=== PATIENT | female | born 1960 | race Caucasian/White ===

== ENCOUNTER 2019-05-14 14:21 | Observation (INO) | payer OTHER, SELFPAY ==
[2019-05-14 14:23] VITALS: BP 149/93; PULSE 85; RESP 16; TEMP 36.7; O2SAT 98; BMI 34.2
--- NOTE | 2019-05-14 14:27 | NURSING ---
NO OLD EKGS
--- NOTE | 2019-05-14 14:42 | RAD_ITS ---
STUDY: X-RAY CHEST REASON FOR EXAM: Female, 58 years old. PT C/O CP, HEARTBURN AND NOT FEELING WELL. ONSET LAST NIGHT. WAS SENT OVER BY URGENT CARE. TECHNIQUE: PA and lateral views of the chest. COMPARISON: None. FINDINGS: The lungs are clear and expanded. There is no demonstrated pleural abnormality. Normal size heart. Normal mediastinum and raghu. Normal visualized pulmonary arteries. Mild atherosclerosis of the aortic arch. There is demineralization of the osseous structures. Normal visualized ribs, clavicles, and shoulders. There is no demonstrated abnormality of the visualized soft tissue structures of the upper abdomen. RAD/Chest PA and Lateral IMPRESSION: No acute cardiopulmonary process. Electronically Signed: Ar Washburn MD (Brooks) at 14:57 EST , Service support ,
--- NOTE | 2019-05-14 15:39 | EKG12_ITS ---
Test Reason : CP ADMIT Blood Pressure : / mmHG Vent. Rate : 056 BPM Atrial Rate : 056 BPM P-R Int : 146 ms QRS Dur : 082 ms QT Int : 438 ms P-R-T Axes : 044 056 056 degrees QTc Int : 422 ms Sinus bradycardia Otherwise normal ECG No previous ECGs available Confirmed by NEENA BOUCHER, BRODERICK ([id number]), publishing editor CARLINE WALLER ([id number]) on 05/17/2019 8:19:08 AM Referred By: DR NEVAREZ Confirmed By:BROEDRICK CHAUDHARY MD
[2019-05-14 15:58] LABS: Absolute Lymphocyte Count 3.08 X10^3/uL (0.83-4.51); Absolute Neutrophil Count 4.9 X10^3/uL (2.0-7.7); Basophil# 0.05 X10^3/uL; Basophil% 0.6 % (0-1); Eosinophil# 0.14 X10^3/uL; Eosinophils% 1.7 % (0-5); Hematocrit 38.1 % (37-47); Hemoglobin 12.3 g/dL (12.0-15.0); Lymphocyte # 3.08 X10^3/ul (4.0); Lymphocyte % 36.3 % (19-41); Mean Corp Hgb Conc 32.3 g/dL (32-36); Mean Corpuscular Hgb 29.9 pg (27.0-32.0); Mean Corpuscular Volume 92.5 fL (81-99); Mean Platelet Vol. 8.7 fl (6.2-12.0); Monocyte# 0.31 X10^3/uL; Monocyte% 3.7 % (0-10); NRBC Flagged by Analyzer 0 % (0-5); Neutrophil # 4.88 X10^3/uL (2.7-7.7); Neutrophil % 57.5 % (47-70); Platelet Count 355 K/mm3 (150-450); RBC Distribution Width CV 13.2 % (11.6-14.6); Red Blood Count 4.12 M/mm3 (4.2-5.4); White Blood Count 8.5 K/mm3 (4.4-11.0)
[2019-05-14] MEDS: Aspirin 81 MG TAB.CHEW 324 MG PO (16:02)
[2019-05-14 16:17] LABS: Anion Gap 3 (5-15); BUN 11 mg/dL (7-18); BUN/Creat Ratio 16.6 RATIO (10-20); Calcium,Total 8.9 mg/dL (8.5-10.1); Chloride 111 mmol/L (98-107); Creatinine, Serum 0.66 mg/dL (0.55-1.02); EST Glomerular Filtration Rate 98 mL/min (>60); Est Glom Filt Rate - Afr Amer 118 mL/min (>60); Glucose 91 mg/dL (74-106); Sodium Level 141 mmol/L (136-145)
--- NOTE | 2019-05-14 16:31 | ED.DCSUM_ITS ---
- ER Visit Summary Date of Service: 05/14/19 Chief Complaint: Chest pain History of Present Illness: The patient is a 58 F presenting with chest pain. Patient states this started yesterday and has been intermittent. At worst it is 8 out of 10, currently 5 out of 10. Chest pain radiates to her left arm. She has associated nausea and diaphoresis. She denies shortness of breath. She went to see her primary care physician and was advised to come to the ED for further evaluation. She is a smoker. She denies PE/DVT risk factors. Physical Examination: Vitals are stable. Patient is afebrile. Alert no acute distress. HEENT exam is unremarkable. Neck is supple. Lungs are clear and equal bilaterally. Heart is regular rate and rhythm. Abdomen is soft nontender nondistended. Extremities are unremarkable. Skin is warm and dry. No focal neurologic deficit. Remainder of exam is unremarkable. Emergency Department Course and Treatment: EKG is sinus rhythm rate of 76. Chest x-ray shows no acute process. CBC, chemistries unremarkable. Troponin is negative. Patient was given aspirin on arrival. She is pain-free on reevaluation. Discussed with the hospitalist for observation. Disposition: Observation Impression: Chest pain This note was generated with [employer] dictation software. It may contain incorrect words, spelling, and punctuation that were not noted in review of the chart prior to signing ED Disposition - Plan for ED Patient: Referrals: Margie Umaña DO [Primary Care Provider] -
--- NOTE | 2019-05-14 17:21 | HP.PCM_ITS ---
<Wade Vickers - Last Filed: 05/14/19 17:21> Problem List (1) Chest pain Status: Acute (2) Nicotine abuse Status: Chronic (3) Vertigo Status: Chronic History of Present Illness Date of Admission: 05/14/19 Chief Complaint: chest pain The patient is a 58 year old F with pmhx of vertigo and nicotine abuse who presents to the ER with c/o chest pain. This began last night at 1030 when she was laying in bed. She states it felt like heartburn and was 10/10 in severity. She had associated left arm numbness. She had profuse sweating. She went to [facility] and woke up with it still present. It has gradually improved in severity to a 1/10 currently. She has never had a stress test and denies any cardiac hx. She has smoked off and on since age 13 and currently smokes 1/2 ppd. Both parents had heart disease. She denies SOB currently. No nausea/vomiting/diarrhea, fevers/chills, or recent infections. 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 Denies: Edema, Heaviness, Light Headedness, Orthopnea, Palpitations, Syncope Respiratory: Reports: Shortness of Breath. Denies: Cough, Shortness of breath at rest, Sputum production Gastrointestinal: Denies: Abdominal Pain, Diarrhea, Nausea, Vomiting Genitourinary: Denies: Dysuria Musculoskeletal: Denies: Joint Pain, Joint Tenderness Skin: Denies: Lesions, Rash, Wounds Neurological: Denies: Numbness, Tingling, Focal weakness Psychiatric: Denies: Anxiety, Depression, Homicidal Ideations, Suicidal Ideations Hematologic/ Lymphatic: Denies: Easy Bruising, Easy Bleeding VTE Information - Inpt Only VTE Present on Admission: No VTE Mechan Device Prophylaxis: None VTE Pharm Prophylaxis ordered?: Yes Patient Problems: Active and Suspected Problems Chest pain (Acute) - Physical Exam Vitals/I&O's: Vital Signs Temp Pulse Resp BP Pulse Ox 98.0 F 85 16 149/93 H 98 05/14/19 14:23 05/14/19 14:23 05/14/19 14:23 05/14/19 14:23 05/14/19 14:23 Oxygen Delivery Method Room Air Weight: 193 lb Body Mass Index (BMI) 34.2 General: Alert, Oriented x3, Cooperative HEENT: Atraumatic, PERRLA, EOMI, Normocephalic Neck: Supple, No JVD, Negative Carotid Bruits Lungs: Clear to auscultation, Diminished Cardiovascular: Regular rate, No murmurs Abdomen: Bowel Sounds Present, Soft, Non Tender Extremities: No edema, Capillary Refill Less than 3 Seconds Skin: No rashes, No breakdown Musculoskeletal: No Tenderness to Palpation of Joints or Extremities Neurological: Cranial nerves II-XII grossly intact Psych/Mental Status: Normal Affect, Appropriate Laboratory Results 05/14/19 15:50: WBC 8.5, RBC 4.12 L, Hgb 12.3, Hct 38.1, MCV 92.5, MCH 29.9, MCHC 32.3, RDW Std Deviation 45.0 H, RDW Coeff of Debra 13.2, Plt Count 355, MPV 8.7, Immature Gran % (Auto) 0.200, Neut % (Auto) 57.5, Lymph % (Auto) 36.3, [place] % (Auto) 3.7, Eos % (Auto) 1.7, Baso % (Auto) 0.6, Absolute Neuts (auto) 4.9, Absolute Lymphs (auto) 3.08, Nucleated RBC % 0 05/14/19 15:50: Sodium 141, Potassium 4.0, Chloride 111 H, Carbon Dioxide 27.0, Anion Gap 3 L, BUN 11, Creatinine 0.66, Estim Creat Clear Calc 77.80, Est GFR (MDRD) Af Amer 118, Est GFR (MDRD) Non-Af 98, BUN/Creatinine Ratio 16.6, Glucose 91, Calcium 8.9, Troponin I < 0.015 Assessment/Plan All Active Problems Chest pain (Acute) 1. Chest pain - risk factors include symptomology, heavy smoking hx, + family hx. CXR negative, troponin negative, EKG NSR. Cycle enzymes, maintain on tele, EKG in AM, stress test on thursday. start aspirin, check FLP. 2. Nicotine abuse- patch if desired. lungs diminished, she needs PFTs as an o/p. 3. Hx vertigo - follows a neurologist. Does not take meds for this anymore 4. GERD - on ppi DVT ppx: lovenox DC planning: pt agreeable to staying until thursday for stress test. This patient was seen by Wade Vickers PA-C under the supervision of Doctor Davon. <Sundeep Mays F - Last Filed: 05/14/19 18:17> History of Present Illness The patient is a 58 year old F [] Past Medical History Allergies codeine Allergy (Verified 05/14/19 14:25) Upset Stomach - Physical Exam Vitals/I&O's: Vital Signs Temp Pulse Resp BP Pulse Ox 98.0 F 85 16 149/93 H 98 05/14/19 14:23 05/14/19 14:23 05/14/19 14:23 05/14/19 14:23 05/14/19 14:23 Oxygen Delivery Method Room Air Weight: 193 lb Body Mass Index (BMI) 34.2 Laboratory Results 05/14/19 15:50: WBC 8.5, RBC 4.12 L, Hgb 12.3, Hct 38.1, MCV 92.5, MCH 29.9, MCHC 32.3, RDW Std Deviation 45.0 H, RDW Coeff of Debra 13.2, Plt Count 355, MPV 8.7, Immature Gran % (Auto) 0.200, Neut % (Auto) 57.5, Lymph % (Auto) 36.3, [place] % (Auto) 3.7, Eos % (Auto) 1.7, Baso % (Auto) 0.6, Absolute Neuts (auto) 4.9, Absolute Lymphs (auto) 3.08, Nucleated RBC % 0 05/14/19 15:50: Sodium 141, Potassium 4.0, Chloride 111 H, Carbon Dioxide 27.0, Anion Gap 3 L, BUN 11, Creatinine 0.66, Estim Creat Clear Calc 77.80, Est GFR (MDRD) Af Amer 118, Est GFR (MDRD) Non-Af 98, BUN/Creatinine Ratio 16.6, Glucose 91, Calcium 8.9, Troponin I < 0.015 Current Medications Nitroglycerin (Nitrostat) 0.4 mg SUBLINGUAL Q5M PRN PRN Reason: CARDIAC/CHEST PAIN Ondansetron HCl (Zofran) 4 mg IV Q8H PRN PRN PRN Reason: NAUSEA/VOMITING Code Visit Addendum: Dr. Mays I personally examined the patient and reviewed the chart. I agree with the above. 58-year-old female who is overweight and a smoker presents with chest pain that started last night while laying in bed. It has improved and is essentially gone. She was does have a stress test over the summer however she had to have a breast biopsy and forgot about it. Her EKG was nonischemic and her initial troponin was negative. Will admit for a chest pain rule out and serial enzymes. OBSV E&M: 05915 Initial observation care L2
--- NOTE | 2019-05-14 17:46 | NURSING ---
ARIELLE NEVAREZ CP
[2019-05-14 18:13] VITALS: BMI 34.4; BMI 34.5
[2019-05-14 18:23] VITALS: BP 120/76; PULSE 61; RESP 18; TEMP 36.6; O2SAT 97
[2019-05-14 19:00] VITALS: PULSE 63
--- NOTE | 2019-05-14 19:00 | EKG12_ITS ---
Test Reason : CP Blood Pressure : / mmHG Vent. Rate : 076 BPM Atrial Rate : 076 BPM P-R Int : 138 ms QRS Dur : 082 ms QT Int : 390 ms P-R-T Axes : 040 038 053 degrees QTc Int : 438 ms Normal sinus rhythm Normal ECG Confirmed by KELLEY BOUCHER, JULIEN ([id number]), purchase request editor MOI VARGAS ([id number]) on 05/19/2019 2:53:03 PM Referred By: NICKIE Confirmed By:LORETTA BENSON MD
[2019-05-14 22:00] VITALS: BP 117/72; PULSE 70; RESP 12; TEMP 36.6; O2SAT 98
[2019-05-15] VITALS (10 sets, daily range): BP systolic 100–122; BP diastolic 56–71; PULSE 66–90; RESP 12–18; TEMP 36.3–36.6; O2SAT 93–99
[2019-05-15 06:39] LABS: Absolute Lymphocyte Count 2.97 X10^3/uL (0.83-4.51); Absolute Neutrophil Count 4.2 X10^3/uL (2.0-7.7); Basophil# 0.09 X10^3/uL; Basophil% 1.1 % (0-1); Eosinophil# 0.29 X10^3/uL; Eosinophils% 3.6 % (0-5); Hematocrit 35.9 % (37-47); Hemoglobin 11.5 g/dL (12.0-15.0); Lymphocyte # 2.97 X10^3/ul (4.0); Lymphocyte % 37.3 % (19-41); Mean Corpuscular Hgb 29.4 pg (27.0-32.0); Mean Corpuscular Volume 91.8 fL (81-99); Mean Platelet Vol. 9.1 fl (6.2-12.0); Monocyte# 0.41 X10^3/uL; Monocyte% 5.2 % (0-10); NRBC Flagged by Analyzer 0 % (0-5); Neutrophil # 4.18 X10^3/uL (2.7-7.7); Neutrophil % 52.5 % (47-70); Platelet Count 350 K/mm3 (150-450); RBC Distribution Width CV 13.5 % (11.6-14.6); RBC Distribution Width SD 45.8 fl (35.1-43.9); Red Blood Count 3.91 M/mm3 (4.2-5.4)
[2019-05-15 06:49] LABS: Anion Gap 3 (5-15); BUN 20 mg/dL (7-18); BUN/Creat Ratio 31.4 RATIO (10-20); Calcium,Total 8.6 mg/dL (8.5-10.1); Chloride 113 mmol/L (98-107); Cholesterol 160 mg/dL (200); Creatinine, Serum 0.64 mg/dL (0.55-1.02); EST Glomerular Filtration Rate 102 mL/min (>60); Est Glom Filt Rate - Afr Amer 124 mL/min (>60); Estimated Creatinine Clearance 80.23 ml/min; Glucose 98 mg/dL (74-106); High Density Lipoprotein 48 mg/dL; Potassium 4.2 mmol/L (3.5-5.1); Sodium Level 143 mmol/L (136-145); Triglycerides 93 mg/dL; Very Low Density Lipoprotein 19 mg/dL (5-40)
[2019-05-15] MEDS: Omega-3 Acid Ethyl Esters 1 GM Capsule PO (08:46)
[2019-05-15] MEDS: Multivitamins,Ther W-Minerals Tablet 1 TABLET PO (08:48)
[2019-05-15] MEDS: Pantoprazole Sodium 20 MG Tablet PO (08:48)
--- NOTE | 2019-05-15 10:21 | NURSING ---
Patient does trigger to be a fall risk based on assessment. Patient has had recent fall in last 3 months and an ongoing history of vertigo. Patient requesting to be up independently despite education on above.
--- NOTE | 2019-05-15 13:23 | PN_ITS ---
<Wade Vickers - Last Filed: 05/15/19 13:23> Patient Problems: Active and Suspected Problems Chest pain (Acute) Reason for Visit: chest pain Subjective: ongoing mild chest discomfort this AM. No n/v. No LH/dizziness. No SOB. Vitals/I&O's: Vital Signs Temp Pulse Resp BP Pulse Ox 98 F 66 18 105/63 95 05/15/19 08:45 05/15/19 11:06 05/15/19 08:45 05/15/19 08:45 05/15/19 08:45 Oxygen Delivery Method Room Air Weight: 197 lb 12.074 oz Body Mass Index (BMI) 34.4 Intake and Output for Last 24 Hours 05/13/19 05/14/19 05/15/19 23:59 23:59 23:59 Intake Total 610 / 610 Output Total 800 / 800 Balance -190 / -190 General: Alert, Oriented x3, Cooperative HEENT: Atraumatic, PERRLA, EOMI, Normocephalic Neck: Supple, No JVD, Negative Carotid Bruits Lungs: Clear to auscultation, Normal air movement Cardiovascular: Regular rate, No murmurs Abdomen: Bowel Sounds Present, Soft, Non Tender Extremities: No edema, Capillary Refill Less than 3 Seconds Skin: No rashes, No breakdown Musculoskeletal: No Tenderness to Palpation of Joints or Extremities Neurological: Cranial nerves II-XII grossly intact Psych/Mental Status: Normal Affect, Appropriate Laboratory Results 05/14/19 15:50: WBC 8.5, RBC 4.12 L, Hgb 12.3, Hct 38.1, MCV 92.5, MCH 29.9, MCHC 32.3, RDW Std Deviation 45.0 H, RDW Coeff of Debra 13.2, Plt Count 355, MPV 8.7, Immature Gran % (Auto) 0.200, Neut % (Auto) 57.5, Lymph % (Auto) 36.3, [place] % (Auto) 3.7, Eos % (Auto) 1.7, Baso % (Auto) 0.6, Absolute Neuts (auto) 4.9, Absolute Lymphs (auto) 3.08, Nucleated RBC % 0 05/14/19 15:50: Sodium 141, Potassium 4.0, Chloride 111 H, Carbon Dioxide 27.0, Anion Gap 3 L, BUN 11, Creatinine 0.66, Estim Creat Clear Calc 77.80, Est GFR (MDRD) Af Amer 118, Est GFR (MDRD) Non-Af 98, BUN/Creatinine Ratio 16.6, Glucose 91, Calcium 8.9, Troponin I < 0.015 05/14/19 18:48: Troponin I < 0.015 05/14/19 23:15: Troponin I < 0.015 05/15/19 06:04: WBC 8.0, RBC 3.91 L, Hgb 11.5 L, Hct 35.9 L, MCV 91.8, MCH 29.4, MCHC 32.0, RDW Std Deviation 45.8 H, RDW Coeff of Debra 13.5, Plt Count 350, MPV 9.1, Immature Gran % (Auto) 0.300, Neut % (Auto) 52.5, Lymph % (Auto) 37.3, [place] % (Auto) 5.2, Eos % (Auto) 3.6, Baso % (Auto) 1.1 H, Absolute Neuts (auto) 4.2, Absolute Lymphs (auto) 2.97, Nucleated RBC % 0 05/15/19 06:04: Sodium 143, Potassium 4.2, Chloride 113 H, Carbon Dioxide 27.0, Anion Gap 3 L, BUN 20 H, Creatinine 0.64, Estim Creat Clear Calc 80.23, Est GFR (MDRD) Af Amer 124, Est GFR (MDRD) Non-Af 102, BUN/Creatinine Ratio 31.4 H, Glucose 98, Calcium 8.6, Triglycerides 93, Cholesterol 160, LDL Cholesterol 93, VLDL Cholesterol 19, HDL Cholesterol 48 Current Medications Acetaminophen (Tylenol) 650 mg PO Q6H PRN PRN PRN Reason: Pain 1-10 or Fever Aspirin (Aspirin, Baby) 81 mg PO QODAY@0800 [facility] Enoxaparin Sodium (Lovenox) 40 mg SC DAILY@0600 [facility] Multivitamins/Minerals (Multivitamin With Minerals (Bkc)) 1 tablet PO DAILY@0800 [facility] Last Admin: 05/15/19 08:48 Dose: 1 tablet Documented by: Nitroglycerin (Nitrostat) 0.4 mg SUBLINGUAL Q5M PRN PRN Reason: CARDIAC/CHEST PAIN [id number] Ethyl Esters (Lovaza) 1 gm PO DAILY [facility] Last Admin: 05/15/19 08:46 Dose: 1 gm Documented by: Ondansetron HCl (Zofran) 4 mg IV Q8H PRN PRN PRN Reason: NAUSEA/VOMITING Pantoprazole Sodium (Protonix) 20 mg PO DAILY [facility] Last Admin: 05/15/19 08:48 Dose: 20 mg Documented by: Sodium Chloride () 10 - 40 ml IV UD PRN PRN Reason: SALINE FLUSH STROKE Vital Signs/Narrative: Vital Signs Pulse 05/15/19 11:06 66 Medical Necessity - Tobacco Use Smoking Status: Current every day smoker Tobacco Use: Cigarettes Assessment/Plan All Active Problems Chest pain (Acute) 1. Chest pain - trop negx3, flp on chart, EKGs neg, tele neg. Stress test in am. 2. Nicotine abuse- patch if desired. lungs diminished, she needs PFTs as an o/p. 3. Hx vertigo - follows a neurologist. Does not take meds for this anymore. Currently asymptomatic. 4. GERD - on ppi DVT ppx: lovenox DC planning: stress in am. This patient was seen by Wade Vickers PA-C under the supervision of Doctor Davon. <Sundeep Mays F - Last Filed: 05/15/19 14:08> Vitals/I&O's: Vital Signs Temp Pulse Resp BP Pulse Ox 98 F 66 18 105/63 95 05/15/19 08:45 05/15/19 11:06 05/15/19 08:45 05/15/19 08:45 05/15/19 08:45 Oxygen Delivery Method Room Air Weight: 197 lb 12.074 oz Body Mass Index (BMI) 34.4 Intake and Output for Last 24 Hours 05/13/19 05/14/19 05/15/19 23:59 23:59 23:59 Intake Total 610 / 610 Output Total 800 / 800 Balance -190 / -190 Laboratory Results 05/14/19 15:50: WBC 8.5, RBC 4.12 L, Hgb 12.3, Hct 38.1, MCV 92.5, MCH 29.9, MCHC 32.3, RDW Std Deviation 45.0 H, RDW Coeff of Debra 13.2, Plt Count 355, MPV 8.7, Immature Gran % (Auto) 0.200, Neut % (Auto) 57.5, Lymph % (Auto) 36.3, [place] % (Auto) 3.7, Eos % (Auto) 1.7, Baso % (Auto) 0.6, Absolute Neuts (auto) 4.9, Absolute Lymphs (auto) 3.08, Nucleated RBC % 0 05/14/19 15:50: Sodium 141, Potassium 4.0, Chloride 111 H, Carbon Dioxide 27.0, Anion Gap 3 L, BUN 11, Creatinine 0.66, Estim Creat Clear Calc 77.80, Est GFR (MDRD) Af Amer 118, Est GFR (MDRD) Non-Af 98, BUN/Creatinine Ratio 16.6, Glucose 91, Calcium 8.9, Troponin I < 0.015 05/14/19 18:48: Troponin I < 0.015 05/14/19 23:15: Troponin I < 0.015 05/15/19 06:04: WBC 8.0, RBC 3.91 L, Hgb 11.5 L, Hct 35.9 L, MCV 91.8, MCH 29.4, MCHC 32.0, RDW Std Deviation 45.8 H, RDW Coeff of Debra 13.5, Plt Count 350, MPV 9.1, Immature Gran % (Auto) 0.300, Neut % (Auto) 52.5, Lymph % (Auto) 37.3, [place] % (Auto) 5.2, Eos % (Auto) 3.6, Baso % (Auto) 1.1 H, Absolute Neuts (auto) 4.2, Absolute Lymphs (auto) 2.97, Nucleated RBC % 0 05/15/19 06:04: Sodium 143, Potassium 4.2, Chloride 113 H, Carbon Dioxide 27.0, Anion Gap 3 L, BUN 20 H, Creatinine 0.64, Estim Creat Clear Calc 80.23, Est GFR (MDRD) Af Amer 124, Est GFR (MDRD) Non-Af 102, BUN/Creatinine Ratio 31.4 H, Glucose 98, Calcium 8.6, Triglycerides 93, Cholesterol 160, LDL Cholesterol 93, VLDL Cholesterol 19, HDL Cholesterol 48 Current Medications Acetaminophen (Tylenol) 650 mg PO Q6H PRN PRN PRN Reason: Pain 1-10 or Fever Aspirin (Aspirin, Baby) 81 mg PO QODAY@0800 [facility] Enoxaparin Sodium (Lovenox) 40 mg SC DAILY@0600 [facility] Multivitamins/Minerals (Multivitamin With Minerals (Bkc)) 1 tablet PO DAILY@0800 [facility] Last Admin: 05/15/19 08:48 Dose: 1 tablet Documented by: Nitroglycerin (Nitrostat) 0.4 mg SUBLINGUAL Q5M PRN PRN Reason: CARDIAC/CHEST PAIN [id number] Ethyl Esters (Lovaza) 1 gm PO DAILY [facility] Last Admin: 05/15/19 08:46 Dose: 1 gm Documented by: Ondansetron HCl (Zofran) 4 mg IV Q8H PRN PRN PRN Reason: NAUSEA/VOMITING Pantoprazole Sodium (Protonix) 20 mg PO DAILY [facility] Last Admin: 05/15/19 08:48 Dose: 20 mg Documented by: Sodium Chloride () 10 - 40 ml IV UD PRN PRN Reason: SALINE FLUSH STROKE Vital Signs/Narrative: Vital Signs Pulse 05/15/19 11:06 66 Code Visit Insert addendum 58-year-old female who is post have a stress test in September however she did not have it because of a breast biopsy and then she forgot, presented with chest pain. She says that she still has a mild chest discomfort but denies any other associated symptoms. Her troponins have remained negative and her EKG was negative for any ischemia. Plan is for stress test in the morning. OBSV E&M: 80018 Subsequent observation care L2
[2019-05-15] MEDS: Acetaminophen 325 MG Tablet 650 MG PO (20:05)
[2019-05-16] VITALS (8 sets, daily range): BP systolic 101–128; BP diastolic 59–76; PULSE 62–92; RESP 15–18; TEMP 36.3–36.8; O2SAT 95–98
[2019-05-16] MEDS: Aspirin 81 MG TAB.CHEW PO (06:20)
[2019-05-16] MEDS: 0.9% Saline Lock 10 ML Syringe IV (06:21)
[2019-05-16] MEDS: Pantoprazole Sodium 20 MG Tablet PO (11:58)
[2019-05-16] MEDS: Multivitamins,Ther W-Minerals Tablet 1 TABLET PO (11:58)
[2019-05-16] MEDS: Omega-3 Acid Ethyl Esters 1 GM Capsule PO (11:58)
--- NOTE | 2019-05-16 12:16 | PCM.DC ---
- Discharge Diagnoses Current Active Problems: Current Active and Chronic Problems Chest pain (Acute) Nicotine abuse (Chronic) Vertigo (Chronic) You will use the following diet at home:: No restrictions Your food should be the consistency of: Regular Your liquids should be the consistency of: Regular/Thin Discharge Activity: Return to Normal Activity Allergies/Adverse Reactions: Allergies codeine Allergy (Verified 05/14/19 14:25) Upset Stomach Medications to take at Discharge Acetaminophen [Tylenol Arthritis] 650 mg PO Q6H PRN PRN 05/14/19 Aspirin [Aspirin, Baby] 81 mg PO QODAY 05/14/19 Multivit-Min/Iron/Folic/Vit K1 [Centrum Chewables Adults Tab] 1 ea PO DAILY 05/14/19 [place]-3 Fatty Acids/Fish Oil [[place] 3 Fish Oil Softgel] 1 ea PO DAILY 05/14/19 Omeprazole [Prilosec] 10 mg PO DAILY 05/14/19 Primary Care Physician: Margie Umaña DO [Primary Care Provider] - Please follow up with your Primary Care Physician in: 1-2 weeks Test Results: Test results from this visit will be discussed in further detail at your follow-up appointment, if applicable. Proposed Discharge Date: 05/16/19
--- NOTE | 2019-05-16 12:39 | STRESSREP_ITS ---
Stress Test Report Pharmacologic myocardial perfusion stress test. 58-year-old lady with a history of chest pain and vertigo. Stress protocol: Resting EKG demonstrates normal sinus rhythm with a rate of 69 bpm normal intervals are noted resting blood pressures in 22/70 2 mmHg. 0.4 mg of regadenoson was infused per usual protocol followed by rapid intravenous saline flush injection continuous EKG monitoring was performed. At rest there were no ST or T wave changes noted to suggest abnormal flow reserve at peak infusion nonspecific ST-T wave changes were noted. The maximum heart rate attained was 104 bpm which was 63% of maximum predicted heart rate the maximum workload was 1 metabolic equivalent. Myocardial perfusion protocol. 11.9 mCi of technetium 99m sestamibi was injected at rest. 0.4 mg of regadenoson was infused per usual protocol. At peak infusion 34.0 mCi of technetium 99m sestamibi was injected stress images were obtained stress and rest images were reconstructed in comparing the short axis vertical long horizontal long axis. Gated images were also obtained per Perfusion SPECT analysis: Review of the stress images demonstrate normal uptake of tracer in all areas of the myocardium. The resting images similar demonstrate normal uptake of tracer noted in all areas of the myocardium. No areas of reversibility are noted nicole ggest ischemia no previous infarct is noted. Gated SPECT analysis: The gated ejection fraction is 65%. Conclusion: Normal pharmacologic myocardial perfusion stress test. Preserved ejection fraction.
--- NOTE | 2019-05-16 12:53 | PHA.DC.MR ---
Pharmacy Service has performed discharge medication reconciliation for this patient. The patient's discharge medication list was reviewed for discrepancies and discrepancies were resolved. Home Medications Acetaminophen [Tylenol Arthritis] 650 mg PO Q6H PRN PRN 05/14/19 Aspirin [Aspirin, Baby] 81 mg PO QODAY 05/14/19 Multivit-Min/Iron/Folic/Vit K1 [Centrum Chewables Adults Tab] 1 ea PO DAILY 05/14/19 [place]-3 Fatty Acids/Fish Oil [[place] 3 Fish Oil Softgel] 1 ea PO DAILY 05/14/19 Omeprazole [Prilosec] 10 mg PO DAILY 05/14/19
--- NOTE | 2019-05-16 14:43 | PCM.DC.SUM ---
<Wade Vickers - Last Filed: 05/16/19 14:43> Discharge Date and Diagnosis Date of Admission: 05/14/19 Date of Discharge: 05/16/19 - Primary Discharge Diagnosis Chest pain, musculoskeletal Nicotine abuse chronic vertigo - Secondary Discharge Diagnosis Chronic Problems Nicotine abuse (Chronic) Vertigo (Chronic) Hospital Course and Treatment Imaging Results: 05/16/19 18:11 Nuclear Stress Test - Chemical [NM] Routine Conclusion: Normal pharmacologic myocardial perfusion stress test. Preserved ejection fraction. Operations: None Procedures: Stress test Summary of Care Provided: Hospital Course: The patient is a 58 year old F with heavy smoking hx, hx chronic vertigo, who presented to the ER with c/o chest pain. She described this as 10/10 pain feeling like heartburn that occurred while lying in bed with associated profuse sweating and left arm numbness. She had a family hx of cardiac disease in both parents and smoked since age 13. She had a negative EKG, negative troponin, and negative CXR. In the ER her pain had improved gradually to 1/10. She was admitted for chest pain workup. No events on tele, troponin negative x 3, and a stress test were all negative. She was discharged home in stable condition. She will need to follow up with her PCP in 1-2 weeks. This patient was seen by Wade Vickers PA-C under the supervision of Dr. Mays. [] - Physical Exam Vitals/I&O's: Vital Signs Temp Pulse Resp BP Pulse Ox 98.3 F 63 16 128/76 H 98 05/16/19 14:04 05/16/19 14:04 05/16/19 14:04 05/16/19 14:04 05/16/19 14:04 Oxygen Delivery Method Room Air Weight: 197 lb 12.074 oz Body Mass Index (BMI) 34.4 Intake and Output for Last 24 Hours 05/14/19 05/15/19 05/16/19 23:59 23:59 23:59 Intake Total 1327 / 1327 560 / 560 Output Total 800 / 800 Balance 527 / 527 560 / 560 General: Alert, Oriented x3, Cooperative HEENT: Atraumatic, PERRLA, EOMI, Normocephalic Neck: Supple, No JVD, Negative Carotid Bruits Lungs: Clear to auscultation, Normal air movement Cardiovascular: Regular rate, No murmurs Abdomen: Bowel Sounds Present, Soft, Non Tender Extremities: No edema, Capillary Refill Less than 3 Seconds Skin: No rashes, No breakdown Musculoskeletal: No Tenderness to Palpation of Joints or Extremities Neurological: Cranial nerves II-XII grossly intact Psych/Mental Status: Normal Affect, Appropriate, Alert and oriented to time, place, person, mood and affect Discharge Diet: No Restrictions Discharge Activity: Return to Normal Activity Home Medications: Medications to take at Discharge Acetaminophen [Tylenol Arthritis] 650 mg PO Q6H PRN PRN 05/14/19 Aspirin [Aspirin, Baby] 81 mg PO QODAY 05/14/19 Multivit-Min/Iron/Folic/Vit K1 [Centrum Chewables Adults Tab] 1 ea PO DAILY 05/14/19 [place]-3 Fatty Acids/Fish Oil [[place] 3 Fish Oil Softgel] 1 ea PO DAILY 05/14/19 Omeprazole [Prilosec] 10 mg PO DAILY 05/14/19 Primary Care Physician: Margie Umaña DO [Primary Care Provider] - Please follow up with your Primary Care Physician in: 1-2 weeks Please Follow Up With: Margie Umaña DO Disposition: Home Minutes spent on discharge:: 35 Patient Condition:: Stable Medical Necessity - Tobacco Use Smoking Status: Current every day smoker Tobacco Use: Cigarettes Meaningful Use Info Meaningful Use Diagnoses (Choose all that apply): None applicable <Sundeep Mays F - Last Filed: 05/16/19 15:15> Discharge Date and Diagnosis - Secondary Discharge Diagnosis Chronic Problems Nicotine abuse (Chronic) Vertigo (Chronic) Hospital Course and Treatment Imaging Results: 05/16/19 18:11 Nuclear Stress Test - Chemical [NM] Routine Summary of Care Provided: The patient is a 58 year old F [] - Physical Exam Vitals/I&O's: Vital Signs Temp Pulse Resp BP Pulse Ox 98.3 F 63 16 128/76 H 98 05/16/19 14:04 05/16/19 14:04 05/16/19 14:04 05/16/19 14:04 05/16/19 14:04 Oxygen Delivery Method Room Air Weight: 197 lb 12.074 oz Body Mass Index (BMI) 34.4 Intake and Output for Last 24 Hours 02/08/20 02/09/20 02/10/20 23:59 23:59 23:59 Intake Total 1327 / 1327 560 / 560 Output Total 800 / 800 Balance 527 / 527 560 / 560 Code Visit Addendum: Dr. Mays I personally examined the patient and reviewed the chart. I agree with the above. 58-year-old female who was supposed to have a stress test in September however she had a breast biopsy at that time and it was canceled. Presents with chest pain. She still had a little bit of mild discomfort yesterday however this morning she was fine prior to her stress test. She did have a stress test and it was negative therefore she was discharged home with outpatient follow-up. Her troponins were negative as were her EKG. OBSV E&M: 47031 Observation care discharge
== END 2019-05-16 12:16 | disposition home or self-care (01) ==
LOC: ED 16:22 → PCU 18:07
PROVIDERS: Admitting Provider Family Medicine; Emergency Provider Emergency Medicine; PCP Family Medicine; Visit Provider Family Medicine
DX: R07.89 Other chest pain (principal); R42 Dizziness and giddiness; F17.210 Nicotine dependence, cigarettes, uncomplicated; M79.602 Pain in left arm; R11.0 Nausea; K21.9 Gastro-esophageal reflux disease without esophagitis; Z79.899 Other long term (current) drug therapy; Z79.82 Long term (current) use of aspirin
CPT/HCPCS: 36415; 71046; 78452; 80048; 80061; 84484; 85025; 93005; 93017; 99218; 99282; 99406; A9500; A4216; G0378; J2785